=== PATIENT | female | born 1965 | race Caucasian/White ===

== ENCOUNTER 2017-12-31 00:39 | Emergency (ER) | payer OTHER ==
[~2017-12-31] VITALS: Ht 157.5 cm; Wt 83.9 kg
[2017-12-31] MEDS ORDERED: [UNRECOGNIZED DRUG - REMARK] PO (00:51)
[2017-12-31] MEDS ORDERED: AUGMENTIN 875-1 EACH PO (01:10)
== END 2017-12-31 01:18 | disposition home or self-care (01) ==
LOC: ED 00:39
DX: L03.011 Cellulitis of right finger (principal)
CPT/HCPCS: 99283